=== PATIENT | female | born 1950 | race Caucasian/White ===

== ENCOUNTER 2017-03-25 21:18 | Inpatient (IN) | payer BC ==
--- NOTE | ~2017-03-25 | CN ---
Consultation Report [facility] [address] [place]. [address] NAME: MILLY MORELOS : 54 STATUS : ADM Vane PAT#: [id number] AGE: 66 ADM/REG DATE : 03/25/17 MR#: [id number] REPORT SERV DATE: 03/26/17 DICTATED BY: RADHA CONNELL DATE: 03/26/17 REPORT STATUS : Draft TRANSCRIBED BY: MODL DATE: 03/26/17 CARDIOLOGY CONSULTATION DATE OF CONSULTATION: 03/26/2017 IDENTIFYING DATA: The patient is a 66-year-old woman, with a history of systolic heart failure, advanced vascular disease, end-stage renal disease, and chronic atrial fibrillation. CHIEF COMPLAINT: Shortness of breath and orthopnea. HISTORY OF PRESENT ILLNESS: Ms. Morelos is a 66-year-old woman, with multiple medical problems. The patient has end-stage renal disease, and is on hemodialysis. The patient was admitted with several days of progressive shortness of breath and orthopnea. The patient reports "they did not remove enough fluid." The patient was in hemodialysis yesterday. Apparently, after hemodialysis she became acutely dyspneic, and therefore presented to [facility] Emergency Room. The patient was found to be in atrial flutter with a rapid ventricular response. She has been admitted to the general medical [facility] for rate control and volume removal with hemodialysis. Of note, the patient has a history of pleural effusions, and has undergone thoracentesis at least twice in the recent past. At this time, the patient denies chest pain. She does remain visibly dyspneic, and has a significant orthopnea. PAST MEDICAL HISTORY: 1. Chronic atrial fibrillation. 2. Nonischemic cardiomyopathy with borderline disease of the left anterior descending by cardiac catheterization-the patient is followed by Dr. Jason Lancaster. 3. Severe peripheral vascular disease, including peripheral arterial disease of the lower extremities, as well as renal artery stenosis, and mesenteric ischemia. 4. History of pulmonary embolism and also arterial thrombosis with adverse reactions to both Coumadin and Eliquis. 5. Depression. 6. End-stage renal disease, on hemodialysis. 7. Multiple pleural effusions. 8. COPD/chronic hypoxia. PAST SURGICAL HISTORY: Significant for a thoracentesis, cholecystectomy, temporary hemodialysis catheter in the right subclavian position. FAMILY HISTORY: The patient's father had been diagnosed with congestive heart failure. Her mother had diabetes. Family history is negative for early coronary heart disease or sudden cardiac . SOCIAL HISTORY: The patient apparently was a previous heavy smoker. She has no history of alcohol or drug use. Consultation Report [address] [place]. [address] NAME: MILLY MORELOS : 54 STATUS : ADM Vane PAT#: [id number] AGE: 66 ADM/REG DATE : 03/25/17 MR#: [id number] REPORT SERV DATE: 03/26/17 DICTATED BY: RADHA CONNELL DATE: 03/26/17 REPORT STATUS : Draft TRANSCRIBED BY: MODDevaughn DATE: 03/26/17 ALLERGIES: THE PATIENT HAS HAD SKIN NECROSIS FROM COUMADIN. SHE APPARENTLY HAD ARTERIAL THROMBOSIS WHILE TAKING ELIQUIS. SHE HAS NO OTHER KNOWN MEDICATION ALLERGIES. HOME MEDICATIONS: 1. Diltiazem 120 mg p.o. daily. 2. Heparin 5000 units subcutaneously q.8 hours. 3. Hydralazine 25 mg p.o. twice daily. 4. Metoprolol succinate 100 mg p.o. daily. 5. Remeron 30 mg p.o. at bedtime. 6. Protonix 40 mg daily. 7. Renvela 1600 mg p.o. with meals. 8. Ambien 10 mg p.o. at bedtime. REVIEW OF SYSTEMS: A complete 12-system review was performed. This is noncontributory except for the pertinent positives and negatives noted in the history of present illness above. PHYSICAL EXAMINATION: VITAL SIGNS: Temperature is 97.6 degrees Fahrenheit, blood pressure is 146/82 mmHg, heart rate is currently variable from 100 to 110 beats per minute, oxygen saturation is 92% on a 4 L nasal cannula. The patient is 157 cm in height and weighs 51 kg. CONSTITUTIONAL: The patient is a frail appearing and chronically ill-appearing white woman, who is currently visibly dyspneic, but able to speak in complete sentences. GENERAL: Well developed. Well nourished. No acute distress. EYES: PERRL, EOMI, clear conjunctiva. HEAD/MNT: NCAT with moist mucous membranes and grossly normal hard and soft palate. NECK: Supple with no obvious thyromegaly or lymphadenopathy CARDIOVASCULAR: There is an irregular rhythm with a normal S1 and a physiologically split second heart sound. There is a faint 1/6 systolic murmur noted at the right upper sternal border, which is early peaking. The jugular venous pressure appears to be at the upper limit of normal at approximately 78 cm. PULMONARY: Decreased breath sounds and dullness to percussion noted in the right lung base. There is scant rales noted in the left lung base and also in the anterior right lung rodriguez. No significant wheezing is noted. Anterior chest wall: A temporary hemodialysis catheter is in place in the right subclavian position. Dressing is clean, dry, and intact. ABDOMINAL: Soft, non-tender, non-distended with no hepatosplenomegaly noted. EXTREMITIES: The patient has muscle wasting consistent with peripheral vascular disease. There is no significant clubbing, cyanosis, or edema noted. MUSCULOSKELETAL: Grossly normal strength and range of motion in all extremities INTEGUMENTARY: Skin appears intact with no bruises, wounds or active lesions noted NEURO/PSYC: Alert and oriented x3, with no dysarthria, facial droop or lateralizing weakness noted. Consultation Report [address] [place]. [address] NAME: MILLY MORELOS : 54 STATUS : ADM Vane PAT#: [id number] AGE: 66 ADM/REG DATE : 03/25/17 MR#: [id number] REPORT SERV DATE: 03/26/17 DICTATED BY: RADHA CONNELL DATE: 03/26/17 REPORT STATUS : Draft TRANSCRIBED BY: KEEGAN DATE: 03/26/17 DIAGNOSTIC DATA: 12-lead EKG: The patient's 12-lead EKG presently demonstrates what appears to be typical atrial flutter with variable AV block. There is a nonspecific intraventricular conduction delay. Early transition is noted in the precordial leads which may suggest posterior NV. There are Q-waves in leads II, III, and AVF suggestive of an inferior NV. LABORATORY DATA: Chemistry shows a sodium of 136, potassium 4.4, chloride is 98, CO2 of 23, BUN is 37, creatinine is 4.2, glucose is 110, and calcium is 9.6. CBC shows a white blood cell count of 7.5, hemoglobin 14.5, hematocrit 45, and platelets 205. ASSESSMENT AND PLAN: 1. Acute on chronic systolic congestive heart failure: The patient has symptoms of dyspnea and orthopnea with a probable right-sided pleural effusion. A chest x-ray will be obtained to evaluate for pulmonary edema and pleural effusion. We would recommend volume removal as tolerated with hemodialysis. The patient may require repeat thoracentesis if her respiratory status worsens. She has been made n.p.o. A transthoracic echocardiogram will be obtained. The patient's most recent echocardiogram is dated 04/02/2016. At that time, the patient was found to have a left ventricular ejection fraction of approximately 35%. She had global hypokinesis with moderate concentric left ventricular hypertrophy, biatrial enlargement, aortic sclerosis without stenosis, and no other significant valvular heart disease. The patient's EKG appears essentially unchanged from baseline. She was noted to be in atrial flutter at the time of her last cardiology visit in 01/03/2016. The patient appears to be in chronic atrial flutter/atrial fibrillation. 2. Atrial flutter: Continue subcu heparin. The patient apparently is on heparin, as she has been intolerant of both a novel anticoagulant as well as Coumadin. Continue metoprolol and diltiazem. 3. End-stage renal disease: The patient has been admitted to Nephrology Service. She will be dialyzed as appropriate. 4. Peripheral arterial disease: The patient has no evidence of acute limb ischemia at this time. Thank you for allowing me to participate in the care of Ms. Morelos. The Cardiology Service will continue to follow the patient closely during this hospitalization. [facility]/KEEGAN Radha Connell MD Consultation Report [address] [address] NAME: MILLY MORELOS : 54 STATUS : ADM Vane PAT#: [id number] AGE: 66 ADM/REG DATE : 03/25/17 MR#: [id number] REPORT SERV DATE: 03/26/17 DICTATED BY: RADHA CONNELL DATE: 03/26/17 REPORT STATUS : Draft TRANSCRIBED BY: KEEGAN DATE: 03/26/17 / [id number] CC: Danish Sifuentes M.D.
--- NOTE | ~2017-03-25 | HP ---
History And Physical [id number] [place]. [address] NAME: MILLY CHI : 54 STATUS : ADM Vane PAT#: [id number] AGE: 66 ADM/REG DATE : 03/25/17 MR#: [id number] REPORT SERV DATE: 03/26/17 DICTATED BY: MIKEY MCDOWELL DATE: 03/26/17 REPORT STATUS : Draft TRANSCRIBED BY: MODL DATE: 03/26/17 DATE OF ADMISSION: 03/25/2017 REASON FOR ADMISSION: Large right effusion, end-stage renal disease. HISTORY OF PRESENT ILLNESS: This is a fairly pleasant 66-year-old female patient, who dialyzes on a Saturday, Saturday, and Saturday schedule via right IJ PermCath. She initially presented to [facility] and was noted to have a large right pleural effusion and was transitioned here to [facility] for further supportive care and possible thoracentesis. She has previously required removal of fluid in this manner by her report, but she does not recall specific timeline from today with previous withdrawal. She is somewhat anxious overall, but is awake and alert and not in distress during evaluation. She was seen in consultation this morning by Cardiology at our request due to abnormal heart rhythm and rate noted last evening with atrial fibrillation/atrial flutter. It appears that she has been reasonably controlled this morning with use of Cardizem drip overnight and she has been seen in consultation by Dr. Nikita Connell, who has recommended undertaking evaluation with echocardiogram along with further workup. The patient is awake and alert this morning. Denies current chest pain, somewhat short of breath, and somewhat anxious, but overall in no acute distress. PAST MEDICAL HISTORY: Positive for end-stage renal disease, on hemodialysis via right IJ PermCath, peripheral vascular disease, chronic atrial fibrillation, anemia of end-stage renal disease, previous Eliquis failure with clot and pulmonary embolism, previous admission for possible Coumadin necrosis in 05/2016, now maintained on chronic subcu heparin, depression, pleural effusions with thoracentesis, cholecystectomy, hypertrophic cardiomyopathy, nonobstructive coronary artery disease based on cardiac catheterization in 2014, chronic systolic congestive heart failure with last known ejection fraction at 35%, severe mesenteric ischemia with SMA stenosis with stenting of iliac stenosis, history of pericapsular hematoma of the liver, anxiety, right renal atrophy for secondary hyperparathyroidism, and chronic hypoxia with chronic 2 L nasal cannula at night. ALLERGIES: PREVIOUSLY, SHE LISTED NO KNOWN DRUG ALLERGIES. CURRENT ALLERGIES ARE LISTED FOLLOWS: CRAB, POTASSIUM, CALCITRIOL, TYLENOL, AND NAPROXEN. ACTIVE MEDICATIONS: Include Cardizem 120 mg daily, heparin 5000 units subcu q.8 hours, Apresoline 25 mg p.o. daily, Toprol 100 mg p.o. daily, Remeron 30 mg p.o. q.h.s., Protonix 40 mg p.o. daily, Renvela 1600 mg with meals, and Ambien 10 mg p.o. q.h.s. REVIEW OF SYSTEMS: Review of systems is completed. Please see HPI for pertinent details. She is somewhat of a poor historian. SOCIAL HISTORY: Previously a lifelong nonsmoker. No current tobacco use is reported. No EtOH. No illicit drugs. FAMILY HISTORY: Noncontributory and not reviewed during this admission. History And Physical [address] [address] NAME: MILLY CHI : 54 STATUS : ADM Vane PAT#: [id number] AGE: 66 ADM/REG DATE : 03/25/17 MR#: [id number] REPORT SERV DATE: 03/26/17 DICTATED BY: MIKEY MCDOWELL DATE: 03/26/17 REPORT STATUS : Draft TRANSCRIBED BY: KEEGAN DATE: 03/26/17 PHYSICAL EXAMINATION: VITAL SIGNS: Blood pressure 137/94, temperature 98.5, respiratory rate 22, and heart rate 107 beats per minute and irregular. GENERAL: She is anxious without overt distress, awake, alert, lying in bed during evaluation. HEENT: Normocephalic and atraumatic. Normal ocular movements. No scleral icterus. No conjunctival pallor is appreciated. NECK: Supple without thyromegaly. No JVD or mass. CHEST: Shows positive S1 and S2 with an irregular rhythm. LUNGS: Diminished throughout. Sparse crackles but without wheezes or rhonchi. GASTROINTESTINAL: Shows positive bowel sounds in all four quadrants. No appreciable mass. No tenderness. GENITOURINARY: Examination is deferred. EXTREMITIES: Show positive pulses. No clubbing, cyanosis, or edema. SKIN: Warm, dry, and intact to visualized surfaces. No rash, lesions, or ecchymosis. She does have a right subclavian access that is intact and shows no signs of acute infection. NEUROLOGIC: She appears to be grossly intact. Nonfocal. She is of appropriate mood and affect, but again is somewhat anxious. LABORATORY DATA: Pertinent laboratories and imaging to this evaluation: Chest, PA and lateral, interval development of a moderate-sized right pleural effusion with right lower lobe and right middle lobe atelectasis compared to 11/25/2016. Pro time 17.9. INR 1.5. CBC shows white blood cell count of 7.5, RBC 3.93, hemoglobin 14.5, hematocrit 44.6, and platelets at 205. Electrolyte profile: Sodium 136, potassium 4.4, chloride 98, CO2 of 23, BUN 37, creatinine 4.22, reflected GFR 10 mL/minute, glucose of 110, and calcium 9.6. IMPRESSION AND PLAN: This is an end-stage renal disease patient who dialyzes on a Saturday, Saturday, and Saturday schedule via a right subclavian access, presenting initially to an outlying facility, now at [facility] with a right pleural effusion with consideration to be undertaken by Pulmonary Services for possible thoracentesis. She has required previous thoracentesis, but does not recall most recent procedure timeline. She has also been seen in consultation today by Cardiology for atrial flutter/fibrillation by Dr. Connell with echocardiogram planned and further evaluation and supportive care from their services. We will maintain her usual hemodialysis schedule, place her on strict I's and O's, daily weights, and monitor her closely with serial laboratories. Request PT and OT evaluation and modify treatment plan based on clinical presentation of the patient, laboratory results, further consultation with renal attending. We appreciate input, care, and assistance through both Pulmonary and Cardiology Services. DICTATED BY: Nikita Jones NP History And Physical [address] [address] NAME: MILLY CHI : 54 STATUS : ADM Vane PAT#: [id number] AGE: 66 ADM/REG DATE : 03/25/17 MR#: [id number] REPORT SERV DATE: 03/26/17 DICTATED BY: MIKEY MCDOWELL DATE: 03/26/17 REPORT STATUS : Draft TRANSCRIBED BY: KEEGAN DATE: 03/26/17 JR/MODL Mikey Mcdowell M.D. / [id number] CC: Danish Sifuentes M.D. UNKNOWN
--- NOTE | ~2017-03-25 | OP ---
Record Of Operation [facility] [address] [place]. [address] NAME: MILLY CHI : 54 STATUS : ADM IN PAT#: [id number] AGE: 66 ADM/REG DATE : 03/25/17 MR#: [id number] REPORT SERV DATE: 03/29/17 DICTATED BY: KERWIN NOLAN JR. DATE: 03/27/17 REPORT STATUS : Draft TRANSCRIBED BY: MODDevaughn DATE: 03/27/17 DATE OF PROCEDURE: 03/27/2017 PREOPERATIVE DIAGNOSES: Recurrent right pleural effusion, end-stage renal disease, on hemodialysis, peripheral arterial disease, chronic atrial fibrillation, history of pulmonary embolus, history of Coumadin necrosis, depression, hypotrophic cardiomyopathy, nonobstructive coronary artery disease, severe mesenteric ischemia, hyperparathyroidism. POSTOPERATIVE DIAGNOSES: Recurrent right pleural effusion, end-stage renal disease, on hemodialysis, peripheral arterial disease, chronic atrial fibrillation, history of pulmonary embolus, history of Coumadin necrosis, depression, hypotrophic cardiomyopathy, nonobstructive coronary artery disease, severe mesenteric ischemia, hyperparathyroidism. NAME OF OPERATION: Bronchoscopy, right thoracoscopy with complete decortication, chemical pleurodesis with Betadine, intercostal nerve block. SURGEON: Dr. Kerwin Nolan Jr RESIDENT SURGEON: Dr. Juan Carlos Abad. FEATHER SAWYER: Ervin Mahajan. ANESTHESIA: General endotracheal. FINDINGS: The patient was noted to have at least 1.5 L of serous looking fluid within the right chest cavity. She had just undergone a thoracentesis with a significant reaccumulation of fluid. There was a partially trapped right lower lobe. We were able to get full re-expansion of all three lobes with the decortication. There were a lot of chronic changes within the right chest cavity, but no evidence of malignancy. The fluid was sent for cultures and cytology. Final pathology is pending. DETAILS OF OPERATION: After adequate general anesthesia, the patient was intubated. Bronchoscopy was performed. Given her small airway incised, we decided to place a bronchial sean. This was done under bronchoscopic guidance. Mucous secretions were evacuated. There was no endobronchial lesions or contraindication proceeding on with surgery. Next, the patient was positioned in the left lateral decubitus position and the right chest was prepped and draped in routine sterile fashion. A small incision was made overlying the lower intercostal space. Through this single incision site, the fluid was evacuated. The chest was explored noting the above findings. There was no significant pericardial effusion. The fluid was sent for cultures and cytology. The lung was decorticated. There was good reexpansion of all three lobes. Betadine was instilled in the chest cavity. A 20- Rw[place]an chest tube was then placed. The lung was reinflated. An intercostal nerve block was performed. The single trocar site was closed with running Vicryl sutures. The skin was closed with running monofilament suture. A Dermabond dressing was applied and the procedure was terminated at this point. The patient tolerated the procedure well and taken back to the direct recovery room in stable condition. Record Of Operation [address] [address] NAME: MILLY CHI : 54 STATUS : ADM IN [facility]#: [id number] AGE: 66 ADM/REG DATE : 03/25/17 MR#: [id number] REPORT SERV DATE: 03/29/17 DICTATED BY: KERWIN NOLAN JR. DATE: 03/27/17 REPORT STATUS : Draft TRANSCRIBED BY: KEEGAN DATE: 03/27/17 [facility]/KEEGAN Kerwin Nolan Jr., M.D. / [id number] CC: Gabe Azar Jr., M.D.
--- NOTE | ~2017-03-25 | DS ---
Discharge Summary [facility] [address] [place]. [address] NAME: MILLY MORELOS : 54 STATUS : DIS IN PAT#: [id number] AGE: 66 ADM/REG DATE : 03/25/17 MR#: [id number] REPORT SERV DATE: 04/05/17 DICTATED BY: CRYSTAL KRUEGER DATE: 04/04/17 REPORT STATUS : Draft TRANSCRIBED BY: MODDevaughn DATE: 04/04/17 ADMISSION DATE: 03/25/2017 DISCHARGE DATE: 04/04/2017 INDICATION FOR ADMISSION: Recurrent right pleural effusion. DISCHARGE DIAGNOSES: 1. Recurrent exudative pleural effusion, status post thoracentesis with VATS procedure and pleurodesis performed on 03/29/[address] Nolan. 2. End-stage renal disease, dialyzing Saturday, Saturday, Saturday by right IJ PermCath. 3. Severe peripheral vascular disease. 4. Chronic atrial fibrillation. 5. Anemia of end-stage renal disease. 6. Depression. 7. Remote pulmonary embolism. 8. Remote cholecystectomy. 9. Hypertrophic cardiomyopathy. 10.Nonobstructive coronary artery disease, based on cardiac cath in 2014. 11.Ggdxu-ej-yzrpwsn systolic congestive heart failure with ejection fraction of 30%. 12.Severe mesenteric ischemia with SMA stenosis requiring stenting and celiac stenosis. 13.Remote pericapsular hematoma of the liver. 14.Anxiety. 15.Right renal atrophy with prior renal artery stent. 16.Secondary hyperparathyroidism. 17.Chronic hypoxemia on 2 L of oxygen. 18.Previous Eliquis failure with clot and pulmonary embolism. 19.History of Coumadin necrosis, May 2016, now on chronic subcutaneous heparin. 20.Remote tonsillectomy and adenoidectomy. 21.Bilateral breast implants. 22.Peripheral vascular disease with angioplasty to both iliac arteries, left renal artery angioplasty and stent. HOSPITAL COURSE: Ms. Morelos is a 66-year-old female, who is followed on dialysis Saturday, Saturday, Saturday and dialyzes by right IJ PermCath. She initially presented to [facility] and was noted to have a large right pleural effusion. She was transitioned to [facility] for supportive care and possible thoracentesis. She was noted to have atrial flutter with rapid ventricular response on monitor and [facility] was consulted. She underwent cardiac echo demonstrating ejection fraction of 30% and medication therapy was adjusted with increasing her diltiazem. During monitoring of her atrial fibrillation, the diltiazem was increased to 240 mg daily and subsequently decreased to 120 due to bradycardia. The patient was seen in consultation by pulmonary medicine and she was noted to have an exudative effusion in March 2016. She underwent thoracentesis of a liter and half of fluid and there was note of reaccumulation after the thoracentesis. For this reason, she was seen in consultation by CT surgery for VATS procedure with pleurodesis. This procedure was Discharge Summary [id number] [place]. [address] NAME: MILLY MORELOS : 54 STATUS : DIS IN PAT#: [id number] AGE: 66 ADM/REG DATE : 03/25/17 MR#: [id number] REPORT SERV DATE: 04/05/17 DICTATED BY: CRYSTAL KRUEGER DATE: 04/04/17 REPORT STATUS : Draft TRANSCRIBED BY: KEEGAN DATE: 04/04/17 performed on 03/29/[address] Nolan. Right thoracoscopy with decortication and pleurodesis was achieved and following appropriate decrease in pleural effusion, the chest tube was removed. She did experience some leaking at the chest tube exit site with cough, but this subsided. She was noted to have low phosphorus and magnesium during the hospitalization and these were treated with intravenous therapy and adjustment of phosphate binders. She felt well at time of release. Her breathing had improved. She was afebrile and was having no complaints. At discharge, her hemoglobin was 13.9, WBC 5.1, MCV 113.9, platelet count 146, potassium was 5, creatinine 4.11, magnesium 2.5, phosphorus was 1.3. She will hold her Renvela and was given 15 mmol of IV sodium phosphate prior to release. DISPOSITION: The patient discharged home. FOLLOWUP: Followup with Cardiology as directed. Followup on dialysis as scheduled. Followup with CT Surgery as directed. DIET: Diet will be renal diet, 1500 mL fluid restriction per day. DISCHARGE MEDICATIONS: Diltiazem 120 mg p.o. daily, heparin 5000 units subcutaneously three times daily, Remeron 30 mg at bedtime, Desyrel 200 mg at bedtime, Toprol-XL 100 mg daily, Protonix 40 mg twice daily, Ambien 10 mg q.h.s. p.r.n., hold Renvela due to low phosphorus, Shayy-Olamide tablet one p.o. daily, albuterol/DuoNeb treatment twice daily p.r.n. ACTIVITY: Activity will be resumed per home regimen. DICTATED BY: Crystal Krueger M.D. CG/MODL Crystal Krueger M.D. / [id number] CC: Gabe Azar M.D.
--- NOTE | ~2017-03-25 | CN ---
Consultation Report [facility] [address] [place]. [address] NAME: MILLY CHI : 54 STATUS : ADM Vane PAT#: [id number] AGE: 66 ADM/REG DATE : 03/25/17 MR#: [id number] REPORT SERV DATE: 03/27/17 DICTATED BY: KERWIN NOLAN JR. DATE: 03/27/17 REPORT STATUS : Draft TRANSCRIBED BY: MODL DATE: 03/27/17 CONSULTATION HISTORY AND PHYSICAL DATE OF CONSULTATION: 03/27/2017 REASON FOR CONSULTATION: Recurrent right pleural effusion. BRIEF HISTORY: This is a 66-year-old white female, who has end-stage renal disease, on hemodialysis on Saturday, Wednesdays, and Fridays, who also has a history of peripheral arterial disease, chronic atrial fibrillation, nonischemic cardiomyopathy with an EF of 35% as well as GERD and anxiety. The patient reports that she has been having increasing shortness of breath over several weeks and upon admission to [facility], she had a large right pleural effusion. She underwent a thoracentesis on 03/26/2017 with an over a liter of fluid drained from right chest with residual fluid remaining after thoracentesis. She has also had a previous thoracentesis in November of this year given the recurrent nature and the likelihood of a trapped right lung. We are asked to see the patient for possible right thoracoscopy with decortication and pleurodesis. PAST MEDICAL HISTORY: Significant for end-stage renal disease, chronic atrial fibrillation, and nonischemic cardiomyopathy with ejection fraction of 35%, depression and anxiety, recurrent pleural effusion, history of previous pulmonary embolism, and severe peripheral arterial disease. PAST SURGICAL HISTORY: Significant for tonsillectomy and adenectomy, cholecystectomy, PermCath placement, and bilateral breast implants. She has also had renal artery stenting. SOCIAL HISTORY: The patient has a previous smoking history of 1 pack per day for 30 years but quit in 2014. FAMILY HISTORY: Significant for hypertension, diabetes mellitus, as well as a father with COPD. ALLERGIES: INCLUDE COUMADIN AND ELIQUIS. CURRENT MEDICATIONS: Include Ambien, hydralazine, Cardizem, heparin, Protonix, Remeron, Renvela, and Toprol. REVIEW OF SYSTEMS: Significant for shortness of breath and right-sided pleuritic type pain. PHYSICAL EXAMINATION: CONSTITUTIONAL: This is a 66-year-old white female, who is alert, oriented, in no acute distress. VITAL SIGNS: Oxygen saturation 95% on 2 L via nasal cannula. Blood pressure 135/60, Consultation Report [facility] [id number] [place]. [address] NAME: MILLY CHI : 54 STATUS : ADM Vane PAT#: [id number] AGE: 66 ADM/REG DATE : 03/25/17 MR#: [id number] REPORT SERV DATE: 03/27/17 DICTATED BY: KERWIN NOLAN JR. DATE: 03/27/17 REPORT STATUS : Draft TRANSCRIBED BY: KEEGAN DATE: 03/27/17 afebrile, heart rate 72, height 157 cm, weight 51 kg. HEENT: Normocephalic, atraumatic. Pupils equal, round, reactive to light. Ears, nose, and throat: No lesions or exudate. NECK: Supple with no lymphadenopathy, JVP, or bruits. Trachea midline. No obvious goiter. CHEST: Symmetrical with no obvious chest wall deformities. CARDIOVASCULAR: Regular rate and rhythm. S1, S2. No murmurs or gallops. RESPIRATORY: Decreased breath sounds greater on the right than on left. ABDOMEN: Soft, nontender, nondistended. Positive bowel sounds in all 4 quadrants. No hepatosplenomegaly. : The patient voids without difficulty. Further examination is deferred. MUSCULOSKELETAL: No obvious kyphosis or scoliosis. EXTREMITIES: No cyanosis or edema. 1+ pulses bilaterally. SKIN: Warm and dry with normal turgor. No obvious lesions or breakdown. NEUROLOGIC: No focal neurological deficits. PSYCHIATRIC: Normal mood and affect. She is pleasant. DATA: CT of the chest dated 03/26/2017 showing large right pleural effusion. Right thoracentesis dated 02/23/2017 successful ultrasound-guided thoracentesis with drainage of 1150 mL of yellow fluid. LABORATORIES: Dated 03/26/2017 sodium 136, potassium 4.1, BUN 37, creatinine 4.22, glucose 110. White blood cell count 7.5, hemoglobin 14.5, hematocrit 44.6, platelet count 205. PROBLEM LIST: 1. Recurrent right pleural effusion. 2. Chronic atrial fibrillation. 3. End-stage renal disease. 4. Peripheral vascular disease. 5. Anxiety and depression. 6. History of pulmonary embolism. IMPRESSION AND PLAN: This is a 66-year-old female with end-stage renal disease as well as ischemic cardiomyopathy with ejection fraction of 35%, who has a recurrent right pleural effusion with trapped lung. She had a thoracentesis yesterday afternoon with drainage of over a liter of fluid. Followup chest x-ray showed residual right pleural fluid. Most likely, trapped lung. We will plan for a right thoracoscopy with decortication and pleurodesis this afternoon. She did eat breakfast this morning and is scheduled for hemodialysis this afternoon. We will plan for the procedure to occur around 4 o'clock. We discussed the risks, benefits, and expected outcomes of the procedure with the patient and she verbalized understanding and is willing to proceed as outlined above. DICTATED BY: Marce Haque NP AM/KEEGAN Consultation Report [address] [address] NAME: MILLY CHI : 54 STATUS : ADM Vane PAT#: [id number] AGE: 66 ADM/REG DATE : 03/25/17 MR#: [id number] REPORT SERV DATE: 03/27/17 DICTATED BY: KERWIN NOLAN JR. DATE: 03/27/17 REPORT STATUS : Draft TRANSCRIBED BY: KEEGAN DATE: 03/27/17 Kerwin Nolan Jr., M.D. / [id number] CC: Danish Sifuentes M.D.
--- NOTE | ~2017-03-25 | CN ---
Consultation Report [facility] [address] [place]. [address] NAME: MILLY MORELOS : 54 STATUS : ADM Vane PAT#: [id number] AGE: 66 ADM/REG DATE : 03/25/17 MR#: [id number] REPORT SERV DATE: 03/26/17 DICTATED BY: SONALI STRICKLAND IV DATE: 03/26/17 REPORT STATUS : Draft TRANSCRIBED BY: KEEGAN DATE: 03/26/17 PULMONARY CONSULTATION DATE OF CONSULTATION: 03/26/2017 REASON FOR REQUEST: Enlarging right pleural effusion. HISTORY OF PRESENT ILLNESS: History was obtained from the records and from the patient. Ms. Morelos is a 66-year-old female with a history of end-stage renal disease on dialysis, severe peripheral arterial disease, chronic atrial fibrillation, nonischemic cardiomyopathy with ejection fraction 35%, depression/anxiety, remote pulmonary embolism, GERD and past pleural effusion, who was admitted with atrial fibrillation with rapid ventricular response with increased right-sided pleural effusion. The patient has noted the insidious onset of increasing shortness of breath for several weeks. She had a chest CT scan in November demonstrating a moderate right pleural effusion and underwent a previous thoracentesis in 03/2016 with exudate of fluid based on the LDH. Over a liter of fluid was removed at that time. The patient had no trauma to her right side. She denies fevers, chills, sweats, or hemoptysis. There is no right-sided chest pain. She has an increased dry nonproductive cough. She has a somewhat limited exercise tolerance secondary to her debilitated state; however, that has gotten dramatically worse where she is now short of breath walking across the room. She has been compliant with dialysis and only recently has unable to get down to her dry weight. She has been compliant with her renal diet. The patient is on supplemental oxygen at home. Only recently, she was placed on albuterol nebulizer which she uses several times a day. PULMONARY HISTORY: Remarkable for no history of childhood asthma or known adult obstructive lung disease. She has had pneumonia in the past. She is a more than [id number] smoker who quit two years ago. She is up-to-date on the seasonal influenza vaccine; however, she has not received the pneumococcal vaccinations. PAST MEDICAL HISTORY: 1. End-stage renal disease, on dialysis. 2. Severe peripheral artery disease. 3. Chronic atrial fibrillation. 4. Nonischemic cardiomyopathy. 5. Depression/anxiety. 6. Remote pulmonary embolism. 7. Past pleural effusion. PAST SURGICAL HISTORY: 1. Tonsillectomy and adenoidectomy. 2. Laparoscopic cholecystectomy. 3. PermCath placement. 4. Bilateral breast implants. Consultation Report [place] [address] [place]. [address] NAME: MILLY MORELOS : 54 STATUS : ADM Vane PAT#: [id number] AGE: 66 ADM/REG DATE : 03/25/17 MR#: [id number] REPORT SERV DATE: 03/26/17 DICTATED BY: SONALI STRICKLAND IV DATE: 03/26/17 REPORT STATUS : Draft TRANSCRIBED BY: KEEGAN DATE: 03/26/17 5. Left renal artery angioplasty and stent. 6. Angioplasty to both iliac arteries. ALLERGIES: THE PATIENT REPORTED SKIN NECROSIS FROM COUMADIN AND ARTERIAL THROMBOSIS FROM ELIQUIS. CURRENT MEDICATIONS: The patient is on Ambien 5 mg at bedtime, hydralazine 25 mg twice a day, Cardizem CD 120 mg daily, heparin 5000 units q.8 hours, Protonix 40 mg twice a day, Remeron 30 mg at bedtime, Renvela 1600 mg with meals, and Toprol-XL 100 mg daily. SOCIAL HISTORY: Remarkable for the previous tobacco use as above. The patient had rare social alcohol use. No illicit drug use. She is , has four biologic children, and three step children. FAMILY HISTORY: Remarkable for hypertension and diabetes in her mother. COPD in her father. REVIEW OF SYSTEMS: 14 systems reviewed and pertinent positives as noted above. PHYSICAL EXAMINATION: GENERAL: This is a chronically ill-appearing, elderly female, appearing older than her stated age in distress when she lies supine. VITAL SIGNS: Temperature is 98.5, pulse is variable though typically in the 110 range, respiratory rate is 22, saturations are 95% on 3 L via nasal cannula, and blood pressure is 145/106. HEENT: The patient is normocephalic, atraumatic. Extraocular movements are intact. Pupils react to light. Sclerae and conjunctivae normal. She has nasal cannula in place. She has a Mallampati III airway with some narrowing of the posterior pharyngeal space. NECK: Without any palpable lymphadenopathy or thyromegaly. CHEST: The patient has a tunneled dialysis catheter in her right anterior chest. She has decreased breath sounds and dullness to percussion over half way up right hemithorax. There are some crackles at the left base. No wheezes or rhonchi noted. CARDIOVASCULAR: Jugular venous pulsations are at the angle of jaw in the supine position. She has an irregularly irregular S1, S2 with a 2/6 systolic murmur at the right upper sternal border. Tachycardic. There is no S3. Peripheral pulses are diminished. ABDOMEN: Surgical scars are noted. Scaphoid. Soft. There are hypoactive bowel sounds. There is no palpable hepatosplenomegaly or mass. EXTREMITIES: Demonstrate a very cool and purplish feet. There is no clubbing, palpable cords, or peripheral edema. NEUROLOGIC: The patient is able to move all extremities. Strength is 5-/5 and sensation intact to light touch. LABORATORY DATA: Chest CT scan demonstrates actually smaller B-cell lymphadenopathy. Then on the November study with a much larger right pleural effusion, no emphysematous changes are noted. Consultation Report [facility] [id number] [facility] [place]. [address] NAME: MILLY MORELOS : 54 STATUS : ADM Vane PAT#: [id number] AGE: 66 ADM/REG DATE : 03/25/17 MR#: [id number] REPORT SERV DATE: 03/26/17 DICTATED BY: SONALI STRICKLAND IV DATE: 03/26/17 REPORT STATUS : Draft TRANSCRIBED BY: KEEGAN DATE: 03/26/17 CBC : Hemoglobin 14.5, hematocrit 44.6, platelet count was 205,000, white blood cell count is 7.5, MCV is 114. INR is 1.5. Chemistry: Sodium 136, potassium 4.4, chloride 98, bicarb 23, BUN 37, creatinine 4.22, glucose of 110, calcium is 9.6. ASSESSMENT AND PLAN: 1. Respiratory. The patient had exudative pleural effusion based on LDH in 2016. Diagnostic and therapeutic thoracentesis will be performed now. No significant emphysematous changes on the CT scan. However, she has a risk for chronic obstructive pulmonary disease based on her family history or smoking history. She will be given Anoro 1 puff daily. She will be given albuterol inhaler or nebulizer as needed for symptoms. Oxygen will be titrated to maintain saturations in the 90% to 94% range. 2. Endocrinologic. Thyroid functions will be obtained. 3. Neurologic. B12 will be obtained with the macrocytosis. 4. Cardiovascular. Rate control per Cardiology. Additional hydralazine will be given as needed for elevated blood pressure. 5. Renal. Dialysis per Nephrology. 6. Infectious disease. Prevnar-13 at the time of discharge. Thank you for consulting us. We will follow the patient with you. Thoracentesis will be performed today. NM/MODL Sonali Strickland IV, M.D. / [id number] CC: Danish Sifuentes M.D. UNKNOWN
--- NOTE | ~2017-03-25 | OP ---
Record Of Operation [facility] [address] [place]. [address] NAME: MILLY CHI : 54 STATUS : ADM Vane PAT#: [id number] AGE: 66 ADM/REG DATE : 03/25/17 MR#: [id number] REPORT SERV DATE: 03/26/17 DICTATED BY: SONALI STRICKLAND IV DATE: 03/26/17 REPORT STATUS : Draft TRANSCRIBED BY: KEEGAN DATE: 03/26/17 DATE OF PROCEDURE: 03/26/2017 PREOPERATIVE DIAGNOSIS: Enlarging right pleural effusion. POSTOPERATIVE DIAGNOSIS: Enlarging right pleural effusion. PROCEDURE: Diagnostic and therapeutic right-sided thoracentesis. INDICATIONS: Enlarging right pleural effusion with worsening dyspnea. CONTRAINDICATIONS: None. CONSENT: The risks, benefits, and alternative treatments and evaluations were discussed with the patient. Possible complications were reviewed to include, but not limited to, air leak around the lung, bleeding, infection, low oxygen level, and even potentially . The patient agreed to the procedure with consent signed and witnessed on the front of the chart. PREOPERATIVE LABS: The patient's INR was 1.5, platelet count was 205,000. METHOD: The patient was placed on the edge of her bed in the sitting position with her arms drawn across her chest and resting on a table top. The SonoSite unit was used to localize the pleural effusion. There was a very large collection. A good spot was in the ninth intercostal space in the midscapular line. This area was prepped with chlorhexidine and sterilely draped. Anesthesia was provided to the skin and deeper tissues of approximately 2 mL of 1% lidocaine solution. As the needle was advanced to the deeper tissues, it was kept perpendicular to the patient's chest wall. It was advanced to the rib, then over the rib into the pleural space always staying perpendicular to the chest wall. Pleural fluid was obtained. A small skin incision was made and the thoracentesis catheter was advanced in a similar manner to the rib, then over the rib into the pleural space. A total of 1100 mL of dark yellow fluid was removed without difficulty. This was sent for studies. The procedure was stopped when the patient developed increased coughing and one could actually hear air being sucked in around the catheter with inspiratory effort. At the conclusion of the procedure, there was less though persistent pleural fluid. There was no obvious pneumothorax with lung slide noted. Chest x-ray will be obtained. Estimated blood loss was less than 1 mL with minimal oozing at the conclusion of procedure that stopped with compression. As noted, fluid was sent for studies. The patient tolerated the procedure well with less shortness of breath. CARLEE/KEEGAN Sonali Strickland IV, M.D. Record Of Operation [address] [address] NAME: MILLY CHI : 54 STATUS : ADM Vane PAT#: [id number] AGE: 66 ADM/REG DATE : 03/25/17 MR#: [id number] REPORT SERV DATE: 03/26/17 DICTATED BY: SONALI STRICKLAND IV DATE: 03/26/17 REPORT STATUS : Draft TRANSCRIBED BY: KEEGAN DATE: 03/26/17 / [id number] CC: Danish Sifuentes M.D.
[~2017-03-25 21:18] MED LIST: *UNABLE1; 8 HOUR650 MG PO; ACET500CAP PO; APRES25 PO; ATV.5 PO; ATV1 PO; AVALIDE1 TA1 PO; C2 PO; C25 PO; CARD30 PO; CARDCD120 PO; CARDCD240 PO; CARDIZEM PO; CARTIA XT180 MG/24 PO; CLARIT10 PO; COUMADIN3 MG PO; COUMADIN4 MG PO; COUMADIN6 MG PO; ELIQUIS 5 MG TAB5 MG PO; FLORASTOR250 MG PO; HEPA50006 SC; HYDRALAZINE 25 MG PO; L40 PO; L80 PO; LIPITOR10 PO; LIPITOR20 PO; METOPROLOL 100 MG PO; MULTIVIT/MIN PO; MULTIVITAMI1 PO; NEPHRO PO; NORV10 PO; PCET PO; PLAVIX PO; POTASSIUM OTC PO; PROTONIX 40MG PO; PROTONIX PO; REM15 PO; REMERON30 MG PO; RENVELA800 MG PO; ROCALTROL 0.0.25 MCG PO; SEVE800T PO; TOPROL XL200 MG PO; TOPXL100 PO; TRAZ100 PO; ZANTAC 150 PO; ZOL100 PO
[2017-03-25] MEDS ORDERED: AMB10 PO (22:24)
[2017-03-26 06:21] LABS: CALCIUM, SERUM 9.6 MG/DL (8.5-10.4); CHLORIDE, SERUM 98 MMOL/L (96-112); CO2 (CARBON DIOXIDE) 23 MMOL/L (24-34); GFR AFRICAN AMERICAN 12 ML/MIN (>=60); GFR NON AFRICAN AMERICAN 10 ML/MIN (>=60); GLUCOSE, SERUM 110 MG/DL (60-99); POTASSIUM, SERUM 4.4 MMOL/L (3.5-5.3); SODIUM, SERUM 136 MMOL/L (135-148)
[2017-03-26 06:22] LABS: BUN (BLOOD UREA NITROGEN) 37 MG/DL (6-23); CREATININE 4.22 MG/DL (0.55-1.02)
[2017-03-26 06:29] LABS: ANISOCYTOSIS 1+ (5-10/OIF) (0-5/OIF); PLATELET ESTIMATE ADQ (ADEQUATE)
[2017-03-26 06:30] LABS: BASOPHILS 0.5 %; BASOPHILS ABSOLUTE 0.04 10/3/uL (0.0-0.16); EOSINOPHILS 0.7 %; EOSINOPHILS ABSOLUTE 0.05 10/3/uL (0.0-0.53); HEMOGLOBIN 14.5 g/dL (12.0-16.0); IMMATURE GRANULOCYTES 0.5 %; IMMATURE GRANULOCYTES ABSOLUTE 0.04 10/3/uL (0.0-0.11); LYMPHOCYTES 7.4 %; LYMPHOCYTES ABSOLUTE 0.55 10/3/uL (0.67-4.30); MEAN CORPUS HGB CONC 32.5 g/dL (32.0-36.0); MEAN CORPUSCULAR HEMOGLOB 36.9 pg (26.0-34.0); MEAN PLATELET VOLUME 11.3 fL (9.2-13.0); MONOCYTES 7.8 %; MONOCYTES ABSOLUTE 0.58 10/3/uL (0.21-1.20); NEUTROPHILS 83.1 %; NUCLEATED RED BLOOD CELLS 1.4 /100WBC (0-0); PLATELET COUNT 205 10/3/uL (150-400); RBC DISTRIBUTION WIDTH 17.5 % (12.0-16.0); RED CELL COUNT 3.93 10/6/uL (4.0-5.6); WHITE BLOOD CELLS 7.5 10/3/uL (4.5-10.5)
[2017-03-26 06:31] LABS: HEMATOCRIT 44.6 % (36.0-48.0); MANUAL DIFF NO %; MEAN CORPUSCULAR VOLUME 113.5 fL (80-100)
[2017-03-26 08:32] LABS: INTERNATIONAL NORMAL RATI 1.5 UNITS (-)
[2017-03-26 08:33] LABS: PROTIME (NOT ORD) 17.9 SEC (12.0-14.5)
[2017-03-26] MEDS ORDERED: DILT-XR120 MG PO (13:10)
[2017-03-26] MEDS ORDERED: HEPA50006 SC (13:10)
[2017-03-26] MEDS ORDERED: RENVELA800 MG PO (13:10)
[2017-03-26] MEDS ORDERED: AMB10 PO (13:11)
[2017-03-26] MEDS ORDERED: PROTONIX PO (13:11)
[2017-03-26] MEDS ORDERED: REM15 PO (13:11)
[2017-03-26] MEDS ORDERED: TRAZ100 PO (13:12)
[2017-03-26] MEDS ORDERED: RENA-VITE PO (13:12)
[2017-03-26] MEDS ORDERED: TOPXL100 PO (13:12)
[2017-03-26] MEDS ORDERED: DUONEB INH (13:13)
[2017-03-26 18:10] LABS: INSTRUMENT SERIAL # 35151; OPERATOR ID 31928; SAMPLE PLR
[2017-03-26 18:53] LABS: BODY FLUID CHOLESTEROL < 50 MG/DL; GLUCOSE BODY FL (NOT ORD) 121 MG/DL; LDH BODY FLUID (NOT ORD) 125 U/L; PROTEIN BODY FLUID 3.5 G/DL
[2017-03-26 19:41] LABS: BF TOTAL CELL CT (NOT ORD 314 /MM3; BODY FLUID RBC (NOT ORD) 1933 /MM3
[2017-03-26 19:48] LABS: BD FL LYMPH (NOT ORD) 6 %; BD FL SOURCE (NOT ORD) PLUERAL; BF BASO (NOT OF) 1 %; BF LARGE MONONUCLEAR 84 %; BODY FLUID EOS (NOT ORD) 0 %; BODY FLUID SEG (NOT ORD) 9 %
[2017-03-27 12:43] LABS: BASOPHILS 0.8 %; BASOPHILS ABSOLUTE 0.05 10/3/uL (0.0-0.16); EOSINOPHILS 0.2 %; EOSINOPHILS ABSOLUTE 0.01 10/3/uL (0.0-0.53); HEMATOCRIT 40.3 % (36.0-48.0); HEMOGLOBIN 13.3 g/dL (12.0-16.0); IMMATURE GRANULOCYTES 0.6 %; IMMATURE GRANULOCYTES ABSOLUTE 0.04 10/3/uL (0.0-0.11); LYMPHOCYTES ABSOLUTE 0.81 10/3/uL (0.67-4.30); MEAN CORPUSCULAR HEMOGLOB 36.6 pg (26.0-34.0); MONOCYTES 9.6 %; NEUTROPHILS 75.8 %; NEUTROPHILS ABSOLUTE 4.74 10/3/uL (2.02-8.40); PLATELET COUNT 261 10/3/uL (150-400); RBC DISTRIBUTION WIDTH 17.5 % (12.0-16.0); RED CELL COUNT 3.63 10/6/uL (4.0-5.6); WHITE BLOOD CELLS 6.3 10/3/uL (4.5-10.5)
[2017-03-27 12:44] LABS: MANUAL DIFF NO %
[2017-03-27 12:47] LABS: ANISOCYTOSIS 1+ (5-10/OIF) (0-5/OIF); PLATELET ESTIMATE ADQ (ADEQUATE)
[2017-03-27 14:38] LABS: ALBUMIN 3.2 G/DL (3.5-5.0); ALKALINE PHOSPHATASE 99 U/L (45-117); BUN (BLOOD UREA NITROGEN) 58 MG/DL (6-23); CALCIUM, SERUM 9.3 MG/DL (8.5-10.4); CHLORIDE, SERUM 98 MMOL/L (96-112); CO2 (CARBON DIOXIDE) 22 MMOL/L (24-34); CREATININE 5.82 MG/DL (0.55-1.02); FREE T4 1.34 NG/DL (0.76-1.46); GFR AFRICAN AMERICAN 8 ML/MIN (>=60); GFR NON AFRICAN AMERICAN 7 ML/MIN (>=60); GLOBULIN 3.2 G/DL (2.5-4.1); GLUCOSE, SERUM 110 MG/DL (60-99); PHOSPHORUS, SERUM 4.8 MG/DL (2.5-4.5); POTASSIUM, SERUM 5.7 MMOL/L (3.5-5.3); SGOT(AST) 24 U/L (5-40); SGPT(ALT) 25 U/L (5-65); SODIUM, SERUM 133 MMOL/L (135-148); TOTAL BILIRUBIN 1.4 MG/DL (0-1.2); TOTAL PROTEIN 6.4 G/DL (6.0-8.5)
[2017-03-28 06:24] LABS: BASOPHILS 0.1 %; BASOPHILS ABSOLUTE 0.01 10/3/uL (0.0-0.16); EOSINOPHILS 0 %; HEMATOCRIT 43.3 % (36.0-48.0); IMMATURE GRANULOCYTES 0.7 %; IMMATURE GRANULOCYTES ABSOLUTE 0.05 10/3/uL (0.0-0.11); LYMPHOCYTES 6.3 %; LYMPHOCYTES ABSOLUTE 0.46 10/3/uL (0.67-4.30); MEAN CORPUS HGB CONC 32.3 g/dL (32.0-36.0); MEAN CORPUSCULAR HEMOGLOB 37.7 pg (26.0-34.0); MEAN CORPUSCULAR VOLUME 116.7 fL (80-100); MEAN PLATELET VOLUME 10.7 fL (9.2-13.0); MONOCYTES 3.4 %; MONOCYTES ABSOLUTE 0.25 10/3/uL (0.21-1.20); NEUTROPHILS 89.5 %; NEUTROPHILS ABSOLUTE 6.56 10/3/uL (2.02-8.40); PLATELET COUNT 207 10/3/uL (150-400); RBC DISTRIBUTION WIDTH 17.8 % (12.0-16.0); RED CELL COUNT 3.71 10/6/uL (4.0-5.6); WHITE BLOOD CELLS 7.3 10/3/uL (4.5-10.5)
[2017-03-28 06:25] LABS: MANUAL DIFF NO %
[2017-03-28 06:36] LABS: CALCIUM, SERUM 9.1 MG/DL (8.5-10.4); CHLORIDE, SERUM 102 MMOL/L (96-112); CO2 (CARBON DIOXIDE) 26 MMOL/L (24-34); GFR AFRICAN AMERICAN 11 ML/MIN (>=60); GFR NON AFRICAN AMERICAN 10 ML/MIN (>=60); GLUCOSE, SERUM 131 MG/DL (60-99); POTASSIUM, SERUM 4.7 MMOL/L (3.5-5.3); SODIUM, SERUM 139 MMOL/L (135-148)
[2017-03-28 06:37] LABS: BUN (BLOOD UREA NITROGEN) 31 MG/DL (6-23); CREATININE 4.55 MG/DL (0.55-1.02)
[2017-03-28 06:55] LABS: ANISOCYTOSIS 1+ (5-10/OIF) (0-5/OIF); PLATELET ESTIMATE ADQ (ADEQUATE); RBC MORPHOLOGY ABN (NORMAL)
[2017-03-28 06:56] LABS: ACANTHOCYTES OCC (0-2/OIF); SCHISTOCYTES OCC (0-2/OIF); TEARDROP SHAPED RBCS FEW (3-10/OIF)
[2017-03-29 06:13] LABS: BASOPHILS 0.3 %; BASOPHILS ABSOLUTE 0.01 10/3/uL (0.0-0.16); EOSINOPHILS 1.4 %; EOSINOPHILS ABSOLUTE 0.05 10/3/uL (0.0-0.53); HEMOGLOBIN 15.2 g/dL (12.0-16.0); IMMATURE GRANULOCYTES 0.3 %; IMMATURE GRANULOCYTES ABSOLUTE 0.01 10/3/uL (0.0-0.11); LYMPHOCYTES 11.8 %; LYMPHOCYTES ABSOLUTE 0.41 10/3/uL (0.67-4.30); MEAN CORPUS HGB CONC 32.3 g/dL (32.0-36.0); MEAN CORPUSCULAR HEMOGLOB 37.2 pg (26.0-34.0); MEAN CORPUSCULAR VOLUME 114.9 fL (80-100); MONOCYTES 6.6 %; MONOCYTES ABSOLUTE 0.23 10/3/uL (0.21-1.20); NEUTROPHILS 79.6 %; NEUTROPHILS ABSOLUTE 2.76 10/3/uL (2.02-8.40); NUCLEATED RED BLOOD CELLS 1.9 /100WBC (0-0); PLATELET COUNT 243 10/3/uL (150-400); RBC DISTRIBUTION WIDTH 17.4 % (12.0-16.0); RED CELL COUNT 4.09 10/6/uL (4.0-5.6)
[2017-03-29 06:17] LABS: MANUAL DIFF NO %; WHITE BLOOD CELLS 3.5 10/3/uL (4.5-10.5)
[2017-03-29 06:19] LABS: ALBUMIN 3.4 G/DL (3.5-5.0); BUN (BLOOD UREA NITROGEN) 50 MG/DL (6-23); CALCIUM, SERUM 9.7 MG/DL (8.5-10.4); CHLORIDE, SERUM 98 MMOL/L (96-112); CO2 (CARBON DIOXIDE) 26 MMOL/L (24-34); GFR AFRICAN AMERICAN 8 ML/MIN (>=60); GFR NON AFRICAN AMERICAN 7 ML/MIN (>=60); GLUCOSE, SERUM 83 MG/DL (60-99); PHOSPHORUS, SERUM 6.5 MG/DL (2.5-4.5); POTASSIUM, SERUM 4.3 MMOL/L (3.5-5.3); SODIUM, SERUM 138 MMOL/L (135-148)
[2017-03-29 07:24] LABS: ANISOCYTOSIS 1+ (5-10/OIF) (0-5/OIF); GIANT PLATELET RARE; PLATELET ESTIMATE ADQ (ADEQUATE)
[2017-04-01 08:59] LABS: BASOPHILS 1.1 %; BASOPHILS ABSOLUTE 0.04 10/3/uL (0.0-0.16); EOSINOPHILS 3.2 %; EOSINOPHILS ABSOLUTE 0.12 10/3/uL (0.0-0.53); HEMOGLOBIN 13.3 g/dL (12.0-16.0); IMMATURE GRANULOCYTES 0.5 %; IMMATURE GRANULOCYTES ABSOLUTE 0.02 10/3/uL (0.0-0.11); LYMPHOCYTES 13.1 %; LYMPHOCYTES ABSOLUTE 0.49 10/3/uL (0.67-4.30); MEAN CORPUS HGB CONC 32.7 g/dL (32.0-36.0); MEAN CORPUSCULAR HEMOGLOB 36.8 pg (26.0-34.0); MEAN CORPUSCULAR VOLUME 112.7 fL (80-100); MEAN PLATELET VOLUME 11.7 fL (9.2-13.0); MONOCYTES 9.3 %; MONOCYTES ABSOLUTE 0.35 10/3/uL (0.21-1.20); NEUTROPHILS 72.8 %; NEUTROPHILS ABSOLUTE 2.73 10/3/uL (2.02-8.40); NUCLEATED RED BLOOD CELLS 1.6 /100WBC (0-0); PLATELET COUNT 186 10/3/uL (150-400); RBC DISTRIBUTION WIDTH 17.1 % (12.0-16.0); RED CELL COUNT 3.61 10/6/uL (4.0-5.6); WHITE BLOOD CELLS 3.8 10/3/uL (4.5-10.5)
[2017-04-01 09:02] LABS: HEMATOCRIT 40.7 % (36.0-48.0); MANUAL DIFF NO %
[2017-04-01 09:15] LABS: ALBUMIN 2.7 G/DL (3.5-5.0); BUN (BLOOD UREA NITROGEN) 54 MG/DL (6-23); CHLORIDE, SERUM 108 MMOL/L (96-112); CO2 (CARBON DIOXIDE) 20 MMOL/L (24-34); CREATININE 6.79 MG/DL (0.55-1.02); GFR AFRICAN AMERICAN 7 ML/MIN (>=60); GFR NON AFRICAN AMERICAN 6 ML/MIN (>=60); GLUCOSE, SERUM 83 MG/DL (60-99); PHOSPHORUS, SERUM 2.9 MG/DL (2.5-4.5); SODIUM, SERUM 134 MMOL/L (135-148)
[2017-04-01 09:48] LABS: PLATELET ESTIMATE ADQ (ADEQUATE)
[2017-04-01 09:49] LABS: ANISOCYTOSIS 1+ (5-10/OIF) (0-5/OIF); BURR CELLS 1+ (3-10/OIF) (0-2/OIF); POIKILOCYTOSIS 1+ (5-10/OIF) (0-5/OIF); TEARDROP SHAPED RBCS OCC (0-2/OIF)
[2017-04-01 10:17] LABS: TROPONIN I 0.11 NG/ML (<0.05)
[2017-04-02 06:20] LABS: BASOPHILS ABSOLUTE 0.04 10/3/uL (0.0-0.16); EOSINOPHILS 2.9 %; EOSINOPHILS ABSOLUTE 0.12 10/3/uL (0.0-0.53); HEMATOCRIT 42.3 % (36.0-48.0); HEMOGLOBIN 13.7 g/dL (12.0-16.0); IMMATURE GRANULOCYTES ABSOLUTE 0.04 10/3/uL (0.0-0.11); LYMPHOCYTES 14.9 %; LYMPHOCYTES ABSOLUTE 0.62 10/3/uL (0.67-4.30); MEAN CORPUS HGB CONC 32.4 g/dL (32.0-36.0); MEAN CORPUSCULAR HEMOGLOB 37.1 pg (26.0-34.0); MEAN CORPUSCULAR VOLUME 114.6 fL (80-100); MEAN PLATELET VOLUME 10.2 fL (9.2-13.0); MONOCYTES 10.8 %; MONOCYTES ABSOLUTE 0.45 10/3/uL (0.21-1.20); NEUTROPHILS 69.4 %; PLATELET COUNT 145 10/3/uL (150-400); RBC DISTRIBUTION WIDTH 17.1 % (12.0-16.0); RED CELL COUNT 3.69 10/6/uL (4.0-5.6); WHITE BLOOD CELLS 4.2 10/3/uL (4.5-10.5)
[2017-04-02 06:22] LABS: MANUAL DIFF NO %
[2017-04-02 06:30] LABS: ALBUMIN 2.6 G/DL (3.5-5.0); CALCIUM, SERUM 8.5 MG/DL (8.5-10.4); CHLORIDE, SERUM 105 MMOL/L (96-112); CO2 (CARBON DIOXIDE) 22 MMOL/L (24-34); GLUCOSE, SERUM 92 MG/DL (60-99); PHOSPHORUS, SERUM 2.1 MG/DL (2.5-4.5); POTASSIUM, SERUM 4.3 MMOL/L (3.5-5.3); SODIUM, SERUM 138 MMOL/L (135-148)
[2017-04-02 06:31] LABS: BUN (BLOOD UREA NITROGEN) 31 MG/DL (6-23); CREATININE 4.41 MG/DL (0.55-1.02); GFR AFRICAN AMERICAN 11 ML/MIN (>=60); GFR NON AFRICAN AMERICAN 10 ML/MIN (>=60)
[2017-04-02 06:32] LABS: TROPONIN I 0.13 NG/ML (<0.05)
[2017-04-02 07:19] LABS: ANISOCYTOSIS 1+ (5-10/OIF) (0-5/OIF); PLATELET ESTIMATE SLT DEC (ADEQUATE)
[2017-04-03 03:52] LABS: BASOPHILS 0.6 %; BASOPHILS ABSOLUTE 0.03 10/3/uL (0.0-0.16); EOSINOPHILS 2.3 %; EOSINOPHILS ABSOLUTE 0.11 10/3/uL (0.0-0.53); HEMOGLOBIN 13.2 g/dL (12.0-16.0); IMMATURE GRANULOCYTES 2.5 %; IMMATURE GRANULOCYTES ABSOLUTE 0.12 10/3/uL (0.0-0.11); LYMPHOCYTES 13.1 %; LYMPHOCYTES ABSOLUTE 0.62 10/3/uL (0.67-4.30); MEAN CORPUSCULAR HEMOGLOB 37.7 pg (26.0-34.0); MEAN CORPUSCULAR VOLUME 114.3 fL (80-100); MEAN PLATELET VOLUME 10.7 fL (9.2-13.0); MONOCYTES 12.6 %; NEUTROPHILS 68.9 %; NEUTROPHILS ABSOLUTE 3.27 10/3/uL (2.02-8.40); PLATELET COUNT 158 10/3/uL (150-400); RBC DISTRIBUTION WIDTH 17.2 % (12.0-16.0); WHITE BLOOD CELLS 4.8 10/3/uL (4.5-10.5)
[2017-04-03 03:53] LABS: MANUAL DIFF NO %
[2017-04-03 04:17] LABS: ALBUMIN 2.6 G/DL (3.5-5.0); CALCIUM, SERUM 8.7 MG/DL (8.5-10.4); CHLORIDE, SERUM 108 MMOL/L (96-112); CO2 (CARBON DIOXIDE) 19 MMOL/L (24-34); POTASSIUM, SERUM 4.4 MMOL/L (3.5-5.3); SODIUM, SERUM 136 MMOL/L (135-148)
[2017-04-03 04:18] LABS: BUN (BLOOD UREA NITROGEN) 40 MG/DL (6-23); GFR AFRICAN AMERICAN 9 ML/MIN (>=60); GFR NON AFRICAN AMERICAN 8 ML/MIN (>=60); GLUCOSE, SERUM 118 MG/DL (60-99); PHOSPHORUS, SERUM 1.4 MG/DL (2.5-4.5)
[2017-04-03 04:26] LABS: ANISOCYTOSIS 1+ (5-10/OIF) (0-5/OIF); PLATELET ESTIMATE ADQ (ADEQUATE)
[2017-04-03 04:27] LABS: TEARDROP SHAPED RBCS FEW (3-10/OIF)
[2017-04-04 06:50] LABS: BASOPHILS 0.6 %; BASOPHILS ABSOLUTE 0.03 10/3/uL (0.0-0.16); EOSINOPHILS 2.2 %; EOSINOPHILS ABSOLUTE 0.11 10/3/uL (0.0-0.53); HEMATOCRIT 42.7 % (36.0-48.0); HEMOGLOBIN 13.9 g/dL (12.0-16.0); IMMATURE GRANULOCYTES 2.3 %; IMMATURE GRANULOCYTES ABSOLUTE 0.12 10/3/uL (0.0-0.11); LYMPHOCYTES 13.9 %; LYMPHOCYTES ABSOLUTE 0.71 10/3/uL (0.67-4.30); MEAN CORPUS HGB CONC 32.6 g/dL (32.0-36.0); MEAN CORPUSCULAR HEMOGLOB 37.1 pg (26.0-34.0); MEAN CORPUSCULAR VOLUME 113.9 fL (80-100); MEAN PLATELET VOLUME 10.6 fL (9.2-13.0); MONOCYTES 13.3 %; MONOCYTES ABSOLUTE 0.68 10/3/uL (0.21-1.20); NEUTROPHILS 67.7 %; NEUTROPHILS ABSOLUTE 3.46 10/3/uL (2.02-8.40); PLATELET COUNT 146 10/3/uL (150-400); RBC DISTRIBUTION WIDTH 17.3 % (12.0-16.0); RED CELL COUNT 3.75 10/6/uL (4.0-5.6); WHITE BLOOD CELLS 5.1 10/3/uL (4.5-10.5)
[2017-04-04 06:51] LABS: MANUAL DIFF NO %
[2017-04-04 07:06] LABS: ALBUMIN 2.9 G/DL (3.5-5.0); CHLORIDE, SERUM 108 MMOL/L (96-112); CO2 (CARBON DIOXIDE) 22 MMOL/L (24-34); GLUCOSE, SERUM 96 MG/DL (60-99); PHOSPHORUS, SERUM 1.3 MG/DL (2.5-4.5); SODIUM, SERUM 138 MMOL/L (135-148)
[2017-04-04 07:08] LABS: BUN (BLOOD UREA NITROGEN) 30 MG/DL (6-23); CREATININE 4.11 MG/DL (0.55-1.02); GFR AFRICAN AMERICAN 12 ML/MIN (>=60); GFR NON AFRICAN AMERICAN 11 ML/MIN (>=60); PLATELET ESTIMATE SLT DEC (ADEQUATE)
[2017-04-04 07:09] LABS: ANISOCYTOSIS 1+ (5-10/OIF) (0-5/OIF)
[2017-04-04] MEDS ORDERED: PCET PO (15:43)
[2017-05-11] MEDS ORDERED: ZOFRAN4 PO (20:46)
[2017-05-21] MEDS ORDERED: OXYCOD PO (11:19)
== END 2017-04-04 16:50 | disposition home or self-care (01) | DRG 163 ==
LOC: 4SO 21:18 → SDC/OF 03-27 16:41 → PACU 03-27 18:22 → 5NO 03-27 21:51
PROVIDERS: Internal Medicine Critical Care Medicine; Internal Medicine Nephrology; Nurse Practitioner; Registered Nurse; Thoracic Surgery (Cardiothoracic Vascular Surgery)
PROC: 0W993ZX Drainage of Right Pleural Cavity, Percutaneous Approach, Diagnostic (ICD-10-PCS; 2017-03-26)
PROC: 3E0L3GC Introduction of Other Therapeutic Substance into Pleural Cavity, Percutaneous Approach (ICD-10-PCS; 2017-03-27)
PROC: 3E0T3BZ Introduction of Anesthetic Agent into Peripheral Nerves and Plexi, Percutaneous Approach (ICD-10-PCS; 2017-03-27)
PROC: 5A1D60Z (ICD-10-PCS; 2017-03-27)
PROC: 0BDN4ZZ Extraction of Right Pleura, Percutaneous Endoscopic Approach (ICD-10-PCS; principal; 2017-03-27 15:45)
DX: J90 Pleural effusion, not elsewhere classified (principal); I50.23 Acute on chronic systolic (congestive) heart failure; N18.6 End stage renal disease; I42.1 Obstructive hypertrophic cardiomyopathy; I48.92 Unspecified atrial flutter; Z99.81 Dependence on supplemental oxygen; I48.2 Chronic atrial fibrillation; E21.3 Hyperparathyroidism, unspecified; D63.1 Anemia in chronic kidney disease; J44.9 Chronic obstructive pulmonary disease, unspecified; I25.10 Atherosclerotic heart disease of native coronary artery without angina pectoris; R09.02 Hypoxemia; I73.9 Peripheral vascular disease, unspecified; K21.9 Gastro-esophageal reflux disease without esophagitis; F41.8 Other specified anxiety disorders; Z99.2 Dependence on renal dialysis; Z79.899 Other long term (current) drug therapy; Z87.891 Personal history of nicotine dependence; Z86.711 Personal history of pulmonary embolism; Z98.82 Breast implant status; Z91.013 Allergy to seafood; Z88.6 Allergy status to analgesic agent; Z88.8 Allergy status to other drugs, medicaments and biological substances
CPT/HCPCS: 71010; 71020; 71250; 80048; 80053; 80069; 82465; 82607; 82805; 82945; 82962; 83615; 83735; 83986; 84157; 84439; 84443; 84484; 85025; 85610; 87015; 87070; 87075; 87102; 87116; 87205; 87493; 87493-59; 88112; 88305; 89051; 90670; 93005; 94640; 97161-GP; A9270-GY; C8929; G0009; G0257; J0690; J1160; J1200; J2250; J2370; J2405; J2795; J2997; J3010; J3475; P9045; P9047; Q9957